=== PATIENT | male | born 1940 | race Caucasian/White ===

== ENCOUNTER 2016-11-07 13:53 | Outpatient (CLI) | payer MEDICARE | END 2016-11-07 23:59 | disposition home or self-care (01) | LOC: LAB 13:53 → RAD 23:59 | DX: J90 Pleural effusion, not elsewhere classified (principal); B20 Human immunodeficiency virus [HIV] disease; I42.0 Dilated cardiomyopathy; Z95.1 Presence of aortocoronary bypass graft | CPT/HCPCS: 71020-TC ==

== ENCOUNTER 2016-12-10 12:33 | Outpatient (CLI) | payer MEDICARE | END 2016-12-10 23:59 | disposition home or self-care (01) | LOC: RAD 12:33 | DX: J18.1 Lobar pneumonia, unspecified organism (principal); R91.8 Other nonspecific abnormal finding of lung field; J90 Pleural effusion, not elsewhere classified; J98.11 Atelectasis; B20 Human immunodeficiency virus [HIV] disease | CPT/HCPCS: 71020-TC ==

== ENCOUNTER 2016-12-14 10:43 | Outpatient (CLI) | payer MEDICARE | END 2016-12-14 23:59 | disposition home or self-care (01) | LOC: CT 10:43 | DX: J44.9 Chronic obstructive pulmonary disease, unspecified (principal); J18.1 Lobar pneumonia, unspecified organism; J43.2 Centrilobular emphysema; J90 Pleural effusion, not elsewhere classified; J98.11 Atelectasis; I25.10 Atherosclerotic heart disease of native coronary artery without angina pectoris; I70.0 Atherosclerosis of aorta; M47.894 Other spondylosis, thoracic region; J42 Unspecified chronic bronchitis; R64 Cachexia; Z95.1 Presence of aortocoronary bypass graft; Z98.890 Other specified postprocedural states | CPT/HCPCS: 71250-TC ==

== ENCOUNTER 2016-12-27 07:36 | Outpatient (CLI) | payer MEDICARE ==
[2016-12-27] MEDS ORDERED: NALOXONE PREFILLED SYRINGE 2 MG/2 ML SYRINGE IV ONE (08:30)
[2016-12-27] MEDS ORDERED: MIDAZOLAM HCL 5MG/ML VIAL 25 MG/5 ML VIAL IV ONE (08:30)
[2016-12-27] MEDS ORDERED: FENTANYL PF 250MCG/5ML AMPUL IV ONE (08:30)
[2016-12-27 08:42] LABS: BASOPHILS % (AUTO) 0.4 % (0.0-2.0); EOSINOPHILS # (AUTO) 0.1 /CMM (0.0-0.7); EOSINOPHILS % (AUTO) 1.4 % (0.0-6.0); HEMATOCRIT 41 % (39-51); LYMPHOCYTES # (AUTO) 1.7 /CMM (0.8-4.8); LYMPHOCYTES % (AUTO) 17.9 % (20.0-44.0); MEAN CORPUSCULAR HEMOGLOBIN 27 PG (26.0-33.0); MEAN CORPUSCULAR HGB CONC 32 g/dl (31.0-36.0); MEAN CORPUSCULAR VOLUME 84 fL (80-96); MONOCYTES # (AUTO) 0.8 /CMM (0.1-1.30); MONOCYTES % (AUTO) 8.3 % (2.0-12.0); PLATELET COUNT (AUTO) 305 /CMM (150-450); RDW COEFFICIENT OF VARIATION 17.9 (11.5-15.0); RED BLOOD CELL COUNT(AUTO) 4.91 MIL/uL (4.5-6.0); WHITE BLOOD COUNT (AUTO) 9.7 K/uL (4.3-11.0)
[2016-12-27 09:00] LABS: CALCIUM, SERUM 9.3 mg/dL (8.5-10.1); CREATININE 1.7 mg/dL (0.6-1.3); INR 1.03 (0.87-1.13); POTASSIUM 4.7 mmol/L (3.5-5.1)
[2016-12-27] MEDS ORDERED: LIDOCAINE HCL/PF 1% 30 ML SDV ONE (09:04)
== END 2016-12-27 23:59 | disposition home or self-care (01) ==
LOC: CT 07:36
PROVIDERS: ATTEND Registered Nurse
DX: J44.9 Chronic obstructive pulmonary disease, unspecified (principal); J90 Pleural effusion, not elsewhere classified; R91.8 Other nonspecific abnormal finding of lung field; F11.24 Opioid dependence with opioid-induced mood disorder; F32.9 Major depressive disorder, single episode, unspecified; R45.1 Restlessness and agitation; Z98.890 Other specified postprocedural states
CPT/HCPCS: 36415; 71010 ×2; 76942; 77012; 80048; 83735; 85025; 85610; 85730; 88305; 88312; 88342; J3490; J2250; J2310; J3010

== ENCOUNTER 2017-03-08 10:50 | Outpatient (CLI) | payer MEDICARE | END 2017-03-08 23:59 | disposition home or self-care (01) | LOC: LAB 10:50 → RAD 23:59 | DX: J98.4 Other disorders of lung (principal); Z98.890 Other specified postprocedural states | CPT/HCPCS: 71020-TC ==

== ENCOUNTER 2017-03-20 10:31 | Outpatient (CLI) | payer MEDICARE ==
[2017-03-20] MEDS ORDERED: IV NS 0.9% 250 ML IV ONE (11:25)
[2017-03-20] MEDS ORDERED: CT SWABBABLE VALVE TRANS SET 1 EA INFUS.SET MC ONE (11:25)
[2017-03-20] MEDS ORDERED: IOHEXOL-300 100 ML VIAL IV ONE (11:25)
== END 2017-03-20 23:59 | disposition home or self-care (01) ==
LOC: CT 10:31
DX: J43.2 Centrilobular emphysema (principal); J90 Pleural effusion, not elsewhere classified; M47.894 Other spondylosis, thoracic region; I70.0 Atherosclerosis of aorta; Z95.1 Presence of aortocoronary bypass graft
CPT/HCPCS: 71260; J7050; Q9967